=== PATIENT | male | born 1990 | race Caucasian/White ===

== ENCOUNTER 2020-11-18 20:18 | Emergency (ER) | payer OTHER ==
[~2020-11-18] VITALS: Ht 193 cm; Wt 127.0 kg
[2020-11-18] MEDS ORDERED: LISINOPRIL10 MG PO (20:31)
[2020-11-18] MEDS ORDERED: LIPITOR10 MG PO (20:31)
[2020-11-18] MEDS ORDERED: AMITRIPTYLINE H10 M1 PO (20:32)
[2020-11-18 21:12] LABS: URINE BILIRUBIN NEGATIVE (Negative); URINE BLOOD 2+ (Negative); URINE COLOR YELLOW; URINE GLUCOSE-RANDOM NEGATIVE (Negative); URINE KETONES NEGATIVE (Negative); URINE LEUKOCYTES-REFLEX NEGATIVE (Negative); URINE NITRITE-REFLEX NEGATIVE (Negative); URINE PROTEIN NEGATIVE (Negative); URINE UROBILINOGEN 0.2 E.U./dl (0.2-1.0)
[2020-11-18 21:14] LABS: URINE CLARITY HAZY
[2020-11-18 21:19] LABS: ABSOLUTE EOSINOPHILS 0.1 thou/uL (0.0-0.7); ABSOLUTE MONOCYTES 0.6 thou/uL (0.0-1.2); ABSOLUTE NEUTROPHILS 4.2 thou/uL (1.6-8.1); BASOPHILS 0.6 %; EOSINOPHILS 1.1 %; HEMOGLOBIN 14.8 gm/dL (14.0-18.0); LYMPHOCYTES 28.9 %; MCH 30.1 pg (26.0-34.0); MCHC 33.5 g/dL (28.0-37.0); MCV 89.8 fL (80.0-100.0); MONOCYTES 8.7 %; MPV 7.2 fl. (7.2-11.1); NUCLEATED RBCS 0 /100WBC; PLATELET COUNT* 286 thou/uL (150-400); POLYS 60.7 %; RDW-CV 13.5 % (10.5-14.5); WBC 6.9 thou/uL (4.0-11.0)
[2020-11-18 21:24] LABS: SQUAMOUS 0-3 Few /LPF (0-3); URINE RBC 3-10 Few /HPF (0-2); URINE WBC-REFLEX None Seen /HPF (0-5)
[2020-11-18 21:25] LABS: BACTERIA-REFLEX None Seen /HPF (None Seen); CASTS None Seen /LPF (None Seen); CRYSTALS None Seen /LPF (None Seen); MUCUS 4-6 Moderate strn/LPF (None Seen)
[2020-11-18 21:32] LABS: CALCIUM 8.9 mg/dL (8.5-10.1)
[2020-11-18 21:37] LABS: ALBUMIN 4.2 g/dL (3.4-5.0); TOTAL BILIRUBIN 0.8 mg/dL (<0.1-1.0); TOTAL PROTEIN 7.7 g/dL (6.4-8.2)
[2020-11-18] MEDS ORDERED: TORADOL 10 MG T10 MG PO (22:17)
[2020-11-18] MEDS ORDERED: FLOMAX0.4 MG PO (22:17)
[2020-11-18] MEDS ORDERED: HYDROCODON-ACE1 EAC7 PO (22:17)
[2020-11-18 22:47] VITALS: BP 132/70
== END 2020-11-18 22:47 | disposition home or self-care (01) ==
LOC: M.ERS 20:18
PROVIDERS: Personal Emergency Response Attendant
DX: N23 Unspecified renal colic (principal); I10 Essential (primary) hypertension; Z79.899 Other long term (current) drug therapy; Z87.891 Personal history of nicotine dependence